=== PATIENT | female | born 1985 | race Caucasian/White ===

== ENCOUNTER 2017-02-05 13:37 | Emergency (ER) | payer MEDICARE, OTHER ==
[~2017-02-05] VITALS: Ht 165.1 cm; Wt 78.5 kg
--- NOTE | 2017-02-05 13:40 | PHYS DOC ---
Past History Past Medical History: Anxiety Past Surgical History: Cholecystectomy, Smoking: Non-smoker Alcohol Use: None Drug Use: None Adult General Chief Complaint Chief Complaint: BACK PAIN OR INJURY HPI HPI Patient is a 31 year old female who presents with back pain after moving a bunch of boxes she states the pain is in the lumbar area and radiates down the back of her left leg. She's been taking Advil was really hasn't helped. She did do 1 dose of Flexeril which she states it was an old prescription joint try to once per each also wanted to see a chiropractor and stated she felt a little better if they did ultrasound therapy on her left lower back. She denies any fevers chills nausea vomiting urinary incontinence, weakness in her leg or numbness. She states when she tries to bend over the pain is much worse. Review of Systems Review of Systems Constitutional: Denies fever or chills [] Eyes: Denies change in visual acuity, redness, or eye pain [] HENT: Denies nasal congestion or sore throat [] Respiratory: Denies cough or shortness of breath [] Cardiovascular: No additional information not addressed in HPI [] GI: Denies abdominal pain, nausea, vomiting, bloody stools or diarrhea [] : Denies dysuria or hematuria [] Musculoskeletal: Denies joint pain, positive for back pain Integument: Denies rash or skin lesions [] Neurologic: Denies headache, focal weakness or sensory changes [] Endocrine: Denies polyuria or polydipsia [] Allergies Allergies Allergies Coded Allergies Type Severity Reaction Last Updated Verified Penicillins Allergy Severe Rash 04/18/15 Yes Physical Exam Physical Exam Constitutional: Well developed, well nourished, no acute distress, non-toxic appearance. [] HENT: Normocephalic, atraumatic, bilateral external ears normal, oropharynx moist, no oral exudates, nose normal. [] Eyes: PERRLA, EOMI, conjunctiva normal, no discharge. [] Neck: Normal range of motion, no tenderness, supple, no stridor. [] Cardiovascular:Heart rate regular rhythm, no murmur [] Lungs & Thorax: Bilateral breath sounds clear to auscultation [] Abdomen: Bowel sounds normal, soft, no tenderness, no masses, no pulsatile masses. [] Skin: Warm, dry, no erythema, no rash. [] Back: No midline tenderness, tender palpation over the left lateral paraspinal area, no CVA tenderness. [] Extremities: No tenderness, no cyanosis, no clubbing, ROM intact, no edema. [] Neurologic: Alert and oriented X 3, normal motor function, normal sensory function, no focal deficits noted. [] Psychologic: Affect normal, judgement normal, mood normal. [] EKG EKG [] Radiology/Procedures Radiology/Procedures [] Impressions: Low back pain Course & Med Decision Making Course & Med Decision Making Pertinent Labs and Imaging studies reviewed. (See chart for details) [] Dragon Disclaimer Dragon Disclaimer This chart was dictated in whole or in part using Voice Recognition software in a busy, high-work load, and often noisy Emergency Department environment. It may contain unintended and wholly unrecognized errors or omissions. Departure Departure: Impression: Primary Impression: Muscle cramp Disposition: HOME, SELF-CARE Condition: STABLE Referrals: PCP,NO (PCP) Patient Instructions: Back Pain, Adult Additional Instructions: You were seen today for your muscle spasm causing your backache. Your being discharged with Zanaflex 4 mg every 6-8 hours as needed for muscle spasm. Zanaflex can also cause sleepiness. Please try it when he don't have to drive or work to see how sleepy and make she. You can use it before you go to bed, if it makes you too sleepy. You should also use Advil 600 mg every 8 hours for the next 3-5 days. Please drink extra glasses of water while doing this high dose of Advil. Return to the ER or follow-up with your primary care physician if your pain gets severe, you have weakness in your leg or numbness, if you lose bowel or bladder function, or you have other concerns. Scripts Tizanidine Hcl (ZANAFLEX) 4 Mg Capsule 4 MG PO PRN Q8HRS Y for MUSCLE SPASMS, #30 CAP Prov: CIHNA MOSQUERA MD 02/05/17 [place] MOSQUERA MD Feb 05, 2017 13:40
[2017-02-05 13:49] VITALS: BP 111/72
[2017-02-05] MEDS ORDERED: TIZA4CAP3 PO (14:18)
== END 2017-02-05 14:23 | disposition home or self-care (01) ==
LOC: ER 13:37
DX: M62.830 Muscle spasm of back (principal); M54.5 Low back pain; Z88.0 Allergy status to penicillin; F41.9 Anxiety disorder, unspecified
CPT/HCPCS: 99283

== ENCOUNTER 2019-10-28 18:33 | Emergency (ER) | payer MEDICARE, OTHER ==
[~2019-10-28] VITALS: Ht 165.1 cm; Wt 92.3 kg
[2019-10-28 18:33] VITALS: BP 132/77
[~2019-10-28 18:33] MED LIST: TIZA4CAP3 PO
--- NOTE | 2019-10-28 18:40 | PHYS DOC ---
Past History Past Medical History: No Pertinent History, Anxiety Past Surgical History: Cholecystectomy, Smoking: Non-smoker Alcohol Use: None Drug Use: None General Adult HPI: HPI: ".. 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 it is all messed up... I am probably having a stress reaction.. it s probably stress.. I have one child with disability, two other kids... 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 And working... I probably overdone..." " I just started Aderall improve my attention ... For nursing school...." " I just started tingle... and numbness all over my body.. it was on both sides.. " " My face... lips, ,..forehead.. my arms.. and legs...".. " It all gone now.,.," Patient is a 34 year old female who presents with above hx and complaints numbness over entire body. Patient's states symptoms have almost completely resolved by arrival time at the emergency department. 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 No recent travel. No history immunosuppression. Patient admits to market increase in stress due to demands school, work, home and financial worries. Patient denies any history of prior TIA A's or CVAs. Patient has been seen previously in the ER last visit and 2016 for muscle cramps. Pt., does have hx of Anxiety. Review of Systems: Review of Systems: Constitutional: Denies fever or chills Eyes: Denies change in visual acuity HENT: Denies nasal congestion or sore throat Respiratory: Denies cough or shortness of breath Cardiovascular: Denies chest pain or edema GI: Denies abdominal pain, nausea, vomiting, bloody stools or diarrhea : Denies dysuria Musculoskeletal: Denies back pain or joint pain Integument: Denies rash Neurologic: Denies headache, focal weakness. Complains of full body numbness Endocrine: Denies polyuria or polydipsia Lymphatic: Denies swollen glands Psychiatric: Denies depression or anxiety Heart Score: HEART Score for Chest Pain: HEART Score for Chest Pain Response (Comments) Value History Slighlty/Non-Suspicious 0 ECG Normal 0 Age < 45 0 Risk Factors No Risk Factors 0 Troponin < Normal Limit 0 Total 0 Risk Factors: Risk Factors: DM, Current or recent (<one month) smoker, HTN, HLP, family history of CAD, obesity. Risk Scores: Score 0 - 3: 2.5% MACE over next 6 weeks - Discharge Home Score 4 - 6: 20.3% MACE over next 6 weeks - Admit for Clinical Observation Score 7 - 10: 72.7% MACE over next 6 weeks - Early Invasive Strategies Family History: Family History: Noncontributory to presentation Current Medications: Current Meds: See nursing for home meds Allergies: Allergies: Allergies Coded Allergies Type Severity Reaction Last Updated Verified Penicillins Allergy Severe Rash 04/18/15 Yes Physical Exam: PE: Constitutional: Well developed, well nourished, in acute emotional distress, non-toxic appearance. [] HENT: Normocephalic, atraumatic, bilateral external ears normal, oropharynx moist, no oral exudates, nose normal. [] Eyes: PERRLA, EOMI, conjunctiva normal, no discharge. [] Neck: Normal range of motion, no tenderness, supple, no stridor. [] Cardiovascular: Tachycardia heart rate regular rhythm, no murmur [] Lungs & Thorax: Bilateral breath sounds clear to auscultation [] Abdomen: Bowel sounds normal, soft, no tenderness, no masses, no pulsatile masses. [] Old surgery scars Skin: Warm, dry, no erythema, no rash. Sunburn Back: No tenderness, no CVA tenderness. [] Extremities: No tenderness, no cyanosis, no clubbing, ROM intact, no edema. [] Neurologic: Alert and oriented X 3, normal motor function, normal sensory function now, no focal deficits noted. [] DTRs +2 patellar brachial. Ambulatory without problems. Power Builder Developer equal. No drift. Did complain of a total body numbness, tingling which resolved by time she arrived in the emergency department Psychologic: Affect anxious judgement normal, mood normal. [] EKG: EKG: My interpretation EKG shows a sinus rhythm at 79 bpm. No acute morphology [] Radiology/Procedures: Radiology/Procedures: [] Course & Med Decision Making: Course & Med Decision Making Pertinent Labs and Imaging studies reviewed. (See chart for details) Discussed treatment plan and evaluation plan with patient-patient requests some baseline labs. Pt. decline CT of head. Patient follow-up primary care. Consider holding Adderall. Get adequate rest. Return if any concerns. Impression: 1. Hx. Anxiety 2. Suspect Stress Reaction 3. Hx. Total body numbness [] Dragon Disclaimer: Dragon Disclaimer: This electronic medical record was generated, in whole or in part, using a voice recognition dictation system. Departure Departure: Disposition: HOME/RESIDENCE PRIOR TO ADM Condition: STABLE Referrals: PCP,NO (PCP) Justification of Admission: Justification of Admission: Justification of Admission Dx: N/A Dragon Disclaimer This chart was dictated in whole or in part using Voice Recognition software in a busy, high-work load, and often noisy Emergency Department environment. It may contain unintended and wholly unrecognized errors or omissions. Dragon Disclaimer This chart was dictated in whole or in part using Voice Recognition software in a busy, high-work load, and often noisy Emergency Department environment. It may contain unintended and wholly unrecognized errors or omissions. Dragon Disclaimer This chart was dictated in whole or in part using Voice Recognition software in a busy, high-work load, and often noisy Emergency Department environment. It may contain unintended and wholly unrecognized errors or omissions. JAREN SILVA MD Oct 28, 2019 18:40
[2019-10-28] MEDS ORDERED: IV RINGERS SOLUTION,LACTATED 1,000 ML IV SCH (18:57)
[2019-10-28 19:43] LABS: BASO % 0 % (0-3); EOS # 0.2 x10^3/uL (0.0-0.7); EOS % 2 % (0-3); HEMATOCRIT 36.4 % (36.0-47.0); HEMOGLOBIN 12.4 g/dL (12.0-15.5); LYMPH # 2.5 x10^3/uL (1.0-4.8); LYMPH % 25 % (24-48); MEAN CORPUSCULAR HEMOGLOBIN 30 pg (25-35); MEAN CORPUSCULAR HGB CONC 34 g/dL (31-37); MEAN CORPUSCULAR VOLUME 88 fL (79-100); MONO # 0.8 x10^3/uL (0.0-1.1); MONO % 8 % (0-9); NEUT # 6.4 x10^3uL (1.8-7.7); NEUT % 64 % (31-73); PLATELET COUNT 426 x10^3/uL (140-400); RED BLOOD COUNT 4.15 x10^6/uL (3.50-5.40); RED CELL DISTRIBUTION WIDTH 13.6 % (11.5-14.5)
[2019-10-28 19:43] LABS: BARBITURATES NEG (NEG); BENZODIAZEPINES NEG (NEG); CANNABINOIDS NEG (NEG); COCAINE NEG (NEG); METHADONE NEG (NEG); OPIATES NEG (NEG); PHENCYCLIDINE NEG (NEG)
[2019-10-28 19:44] LABS: CALCIUM 9.1 mg/dL (8.5-10.1); CREATININE 0.9 mg/dL (0.6-1.0); GFR 72.6; POTASSIUM 3.7 mmol/L (3.5-5.1)
[2019-10-28 19:48] LABS: AMPHETAMINE/METHAMPHETAMINE POS (NEG)
[2019-10-28 19:51] LABS: ALBUMIN 3.8 g/dL (3.4-5.0); DIRECT BILIRUBIN 0.1 mg/dL (0.0-0.2); MAGNESIUM 1.8 mg/dL (1.8-2.4); TOTAL BILIRUBIN 0.2 mg/dL (0.2-1.0); TOTAL PROTEIN 7.5 g/dL (6.4-8.2)
[2019-10-28 19:58] LABS: BACTERIA,URINE 0 /HPF (0-FEW); BILIRUBIN,URINE NEG (NEG); CLARITY,URINE CLEAR; COLOR,URINE YELLOW; GLUCOSE,URINE NEG (NEG); NITRITE,URINE NEG (NEG); SQUAMOUS EPITHELIAL CELL,UR MOD /LPF; UROBILINOGEN,URINE 0.2 mg/dL (0.2 mg/dL)
--- NOTE | 2019-10-28 20:29 | EKG ---
[address] [address] Test Date: 2019-10-28 Test Time: 19:06:15 Pat Name: NABEEL BAUTISTA Department: Room: Gender: F Instrumental Music Teacher: : 1985 Requested By: JAREN SILVA Order Number: [id number] Reading MD: Measurements Intervals [place] Rate: 79 P: 32 ND: 140 QRS: 41 QRSD: 84 T: 33 QT: 364 QTc: 423 Interpretive Statements SINUS RHYTHM NORMAL ECG RI6.02 No previous ECG available for comparison
== END 2019-10-28 20:45 | disposition home or self-care (01) ==
LOC: ER 18:33
DX: R20.0 Anesthesia of skin (principal); F41.9 Anxiety disorder, unspecified; Z88.0 Allergy status to penicillin
CPT/HCPCS: 36415; 80048; 80076; 80307; 81001; 81025; 82550; 83735; 84443; 84484; 85025; 85379; 85610; 85730; 93005; 99284; J7120